=== PATIENT | male | born 1990 | race Caucasian/White ===

== ENCOUNTER 2021-05-10 10:08 | Emergency (ER) | payer MEDICAID ==
[2021-05-10] MEDS ORDERED: Adacel Vial IM ONE ×2 (10:17→10:21)
[2021-05-10 10:19] VITALS: BP 121/81
--- NOTE | 2021-05-10 10:23 | ERPHSYRPT ---
- History of Present Illness Source: patient Exam Limitations: no limitations Patient Subjective Stated Complaint: pt here for multi cat bites, he was breaking up a cat fight Triage Nursing Assessment: pt alert, walked in , resp easy, face mask in place pt has bites and scratches to right wrist area and bite between 3 and 4 digit, no bledding Physician History: 31 yo wm broke up cat fight next door to his house subsequently sustaining multiple scratches/bites to his R hand. Pt is R handed and denies previous/other injuries. Cats are stray but are able to be captured. Occurred: just prior to arrival Method of Injury: other (Cat bites) Quality: constant Severity of Pain-Max: mild Severity of Pain-Current: mild Extremities Pain Location: wrist: right, hand: right Modifying Factors: Improves With: movement Associated Symptoms: none Allergies/Adverse Reactions: promethazine [From Phenergan] Allergy (Verified 05/10/21 10:17) Hx Tetanus, Diphtheria Vaccination/Date Given: No Hx Influenza Vaccination/Date Given: No Hx Pneumococcal Vaccination/Date Given: No Immunizations Up to Date: Yes Travel Risk - International Travel Have you traveled outside of the country in past 3 weeks: No - Coronavirus Screening Are you exhibiting any of the following symptoms?: No Close contact with a COVID-19 positive Pt in past 14-21 Days: No - Vaccine Status Have you recieved a Covid-19 vaccination: Yes Functional Skills Tutor: Responde Ai - Vaccination Dates Date of 2cond Vaccination (if applicable): n/a - Review of Systems Constitutional: No Symptoms Eyes: No Symptoms Ears, Nose, & Throat: No Symptoms Respiratory: No Symptoms Cardiac: No Symptoms Abdominal/Gastrointestinal: No Symptoms Genitourinary Symptoms: No Symptoms Skin: No Symptoms Neurological: No Symptoms Psychological: No Symptoms Endocrine: No Symptoms Hematologic/Lymphatic: No Symptoms Immunological/Allergic: No Symptoms - Past Medical History Pertinent Past Medical History: No - Past Surgical History Past Surgical History: No - Social History Smoking Status: Current every day smoker Exposure to second hand smoke: Yes Drug Use: none Patient Lives Alone: No Significant Family History: no pertinent family hx - Nursing Vital Signs Nursing Vital Signs: Initial Vital Signs Temperature 97.0 F 05/10/21 10:11 Pulse Rate 72 05/10/21 10:11 Respiratory Rate 18 05/10/21 10:11 Blood Pressure 121/81 05/10/21 10:11 O2 Sat by Pulse Oximetry 99 05/10/21 10:11 Pain Scale Pain Intensity 0 WNL - Physical Exam General Appearance: no apparent distress Eyes, Ears, Nose, Throat Exam: normal ENT inspection Neck Exam: normal inspection, non-tender, supple, full range of motion, No Brudzinski, No Kernig's Cardiovascular/Respiratory Exam: chest non-tender, normal breath sounds, regular rate/rhythm, heart sounds normal Abdominal Exam: non-tender, soft Back Exam: normal inspection, normal range of motion Shoulder Exam: normal inspection Elbow/Forearm Exam: normal inspection Wrist Exam: abrasions (Several superficial scratches on R dorsal wrist wo need for repair/Good radial pulse, distal sensation, and capillary return) Hand Exam: normal inspection (Several superficial scratches on R hand wo need for repair/Good radial pulse, distal sensation, and capillary return) DTR - Upper Extremity Exam: bicep (R): 2+, bicep (L): 2+ Neuro/Tendon Exam: normal sensation, normal motor functions, normal tendon functions, responds to pain, no evidence tendon injury, No motor deficit Mental Status Exam: alert, oriented x 3, cooperative Skin Exam: normal color, warm, dry SpO2 Interpretation: normal SpO2: 99 O2 Delivery: Room Air - Course Nursing assessment & vital signs reviewed: Yes Ordered Tests: Medication Summary Discontinued Medications Generic Name Dose Route Start Last Admin Trade Name Ronel PRN Reason Stop Dose Admin Diphtheria/Tetanus/Acell Pertussis 0.5 ml 05/10/21 10:17 05/10/21 10:21 Tdap --Diph,Pertuss(Acell),Tet Vac/Pf 0.5 Ml Vial IM 05/10/21 10:18 0.5 ml .ONCE ONE Administration Diphtheria/Tetanus/Acell Pertussis Confirm 05/10/21 10:21 Tdap --Diph,Pertuss(Acell),Tet Vac/Pf 0.5 Ml Vial Administered 05/10/21 10:22 Dose 0.5 ml IM .STK-MED ONE - Progress Progress Note: 05/10/21 10:32 Pt states that he is able to quarantine the cats and observe them for 14 days Tdap given 05/10/21 11:57 Wounds cleansed w Hibiclens per nursing and dressed Pt refused Rabies vaccine at this time and assured myself/staff that animals co uld be quarantined/observed. Spoke w animal control/Health Dept about pt Counseled pt/family regarding: diagnosis, need for follow-up - Departure Departure Disposition: Home Clinical Impression: Cat bite Condition: Good Critical Care Time: No Referrals: DEYANIRA HAZEL MD [Primary Care Provider] - Follow up/PCP as directed Instructions: Animal Bites (DC) Additional Instructions: Capture the cats and quarantine them for 14 days Wash abrasions/bites twice a day with soap/water Apply antibiotic ointment Watch for signs of infection-redness/pain/pus/temperature greater than 100.5 Start Augmentin twice a day for 10 days Prescriptions: Amoxicillin/Potassium Clav [Augmentin 875-125 Tablet] 1 each PO BID 10 Days #20 tablet
[2021-05-10 11:17] VITALS: PULSE 88
[2021-05-10 11:59] VITALS: O2SAT 99
== END 2021-05-10 11:10 | disposition home or self-care (01) ==
LOC: ED 10:08
DX: S60.571A Other superficial bite of hand of right hand, initial encounter (principal); W55.01XA Bitten by cat, initial encounter; Z72.0 Tobacco use
CPT/HCPCS: 90471; 90715; 99283